=== PATIENT | female | born 1955 | race African-American/Black ===

== ENCOUNTER 2016-03-14 18:23 | Emergency (ER) | payer OTHER ==
[~2016-03-14] VITALS: Ht 165.1 cm; Wt 85.6 kg
[~2016-03-14 18:23] MED LIST: ALPRAZOLAM2 MG PO; Ascorbic Acid,Ester- PO; Aspirin E.C. PO; BENZTROPINE MESY1 MG PO; CALCIUM-MAGNES1 EA10 PO; CHOLESTYRAMINE PO; CLONAZEPAM0.5 MG PO; COGENTIN1 MG PO; COGENTIN2 MG PO; CRANBERRY TABL1 EACH PO; CYCLOBENZAPRINE10 M1 PO; Coumadin,Jantoven PO; DIVALPROEX SOD500 MG PO; DOXEPIN HCL50 MG PO; Duragesic TD; ENDOCET 5-3251 EACH PO; ESTRACE42.5 GM VG; FOLIC ACID1 MG PO; Folvite PO; IRON325 M1 PO; Klonopin PO; LIDODERM 5% P1 PATCH TD; LISINOPRIL30 MG PO; LOPRESSOR50 MG PO; LOVAZA1 GM; LOVAZA1 GM PO; LUNESTA3 MG PO; LYRICA150 MG; LYRICA150 MG PO; LYRICA50 MG PO; Lopressor PO; MELOXICAM7.5 MG PO; METOPROLOL TART50 MG; MORPHINE SULFAT15 M1 PO; MS Contin,Oramorph S PO; MULTIVITAMIN1 EAC2 PO; Miralax, Glycolax PO; NAPROSYN500 MG PO; OMEGA-3 ACID ETH1 GM PO; OXCARBAZEPINE150 MG PO; PERCOCET 10/1 TABLET PO; PERCOCET 5/31 TABLET PO; PERCOCET 7.5-51 EACH PO; PRAZOSIN HCL1 MG PO; PREMARIN0.3 MG PO; PRINZIDE 20-251 EACH PO; Percocet 5/325,Endoc PO; QUETIAPINE FUM100 MG PO; RESTORIL22.5 MG PO; SEROQUEL100 MG PO; SEROquel PO; SINEQUAN75 MG PO; Senokot S,Pericolace PO; TRILEPTAL300 MG PO; TYLENOL REGULA325 MG PO; Theragran PO; VITAMIN B-6100 MG PO; VITAMIN B12 100MCG PO; VITAMIN E400 UNIT PO; Vicodin,Lortab 5/500 PO; Vitamin B-12 PO; WELCHOL625 MG PO; XANAX XR1 MG PO; XANAX1 MG PO; XANAX2 MG PO; ZANAFLEX2 MG PO; ZETIA10 MG PO; ZYPREXA10 MG PO; ZYPREXA20 MG PO; Zestril,Prinivil PO; risperDAL PO
[2016-03-14 19:06] LABS: HEMATOCRIT 39.3 % (36.0-46.0); MCH 31.2 PG (29.0-34.0); MCHC 34.1 G/DL (30.0-36.0); MCV 91.4 FL (83-99); MEAN PLAT.VOLUME 10.3 uM^3 (9.5-12.4); PLATELET COUNT 230 K/uL (156-360); RBC DIS.WIDTH-CV 12.8 % (11.8-14.6); RBC DIS.WIDTH-SD 41.7 % (39-53); WHITE BLOOD COUNT 7.8 K/uL (4.1-10.2)
[2016-03-14 19:24] LABS: CHLORIDE 107 mEq/L (99-109); POTASSIUM 3.5 mEq/L (3.7-5.4); SODIUM 143 mEq/L (136-147)
[2016-03-14 19:25] LABS: GLUCOSE 103 mg/dL (70-99)
[2016-03-14 19:27] LABS: ANION GAP 11 MEQ/L (2-14)
[2016-03-14 19:28] LABS: TROP-I INTERPRETATION NEGATIVE; TROPONIN-I < 0.01 ng/mL (0.0-0.30)
[2016-03-14 19:29] LABS: GFR ESTIMATE (CALCULATED) > 59 mL/min/
[2016-03-14 19:30] LABS: UREA NITROGEN (BUN) 16 mg/dL (9-23)
[2016-03-14 23:04] LABS: TROP-I INTERPRETATION NEGATIVE; TROPONIN-I < 0.01 ng/mL (0.0-0.30)
[2016-03-14 23:29] VITALS: BP 163/93
== END 2016-03-14 23:44 | disposition home or self-care (01) ==
LOC: EME 18:23
PROVIDERS: Emergency Medicine
DX: R07.9 Chest pain, unspecified (principal); M79.602 Pain in left arm; I10 Essential (primary) hypertension; G89.29 Other chronic pain; Z79.891 Long term (current) use of opiate analgesic
CPT/HCPCS: 71020; 80048; 84484; 85027; 93005; 99281; 99284

== ENCOUNTER 2016-12-10 21:43 | Emergency (ER) | payer OTHER ==
[~2016-12-10] VITALS: Ht 165.1 cm; Wt 86.2 kg
[2016-12-11 01:16] VITALS: BP 171/94
== END 2016-12-11 01:17 | disposition home or self-care (01) ==
LOC: EME 21:43
DX: T40.1X1A Poisoning by heroin, accidental (unintentional), initial encounter (principal); F31.9 Bipolar disorder, unspecified; K21.9 Gastro-esophageal reflux disease without esophagitis; R56.9 Unspecified convulsions; Z86.73 Personal history of transient ischemic attack (TIA), and cerebral infarction without residual deficits; Z85.038 Personal history of other malignant neoplasm of large intestine; Z72.0 Tobacco use
CPT/HCPCS: 99281; 99284; J2310; J2405

== ENCOUNTER 2017-06-02 16:28 | Emergency (ER) | payer OTHER ==
[~2017-06-02] VITALS: Ht 165.1 cm; Wt 80.1 kg
[2017-06-02] MEDS ORDERED: NARCAN4 MG NS (16:55)
[2017-06-02 17:07] LABS: HEMATOCRIT 41.4 % (36.0-46.0); HEMOGLOBIN 13.9 G/DL (11.9-15.5); MCH 31.7 PG (29.0-34.0); MCHC 33.6 G/DL (30.0-36.0); MCV 94.3 FL (83-99); PLATELET COUNT 219 K/uL (156-360); RBC DIS.WIDTH-CV 13.1 % (11.8-14.6); RBC DIS.WIDTH-SD 45.2 % (39-53); RED BLOOD COUNT 4.39 M/uL (3.80-5.20); WHITE BLOOD COUNT 17.3 K/uL (4.1-10.2)
[2017-06-02 17:15] LABS: CHLORIDE 108 mEq/L (99-109); POTASSIUM 3.7 mEq/L (3.7-5.4); SODIUM 144 mEq/L (136-147)
[2017-06-02 17:17] LABS: GLUCOSE 123 mg/dL (70-99)
[2017-06-02 17:20] LABS: SERUM ETHYL ALCOHOL < 10 mg/dL
[2017-06-02 17:21] LABS: CREATININE 1.2 mg/dL (0.6-1.3); GFR ESTIMATE (CALCULATED) 59 mL/min/
[2017-06-02 17:22] LABS: UREA NITROGEN (BUN) 12 mg/dL (9-23)
[2017-06-02 21:30] VITALS: BP 105/64
== END 2017-06-02 21:31 | disposition home or self-care (01) ==
LOC: EME 16:28
PROVIDERS: Emergency Medicine Emergency Medical Services
DX: T40.2X1A Poisoning by other opioids, accidental (unintentional), initial encounter (principal); T42.4X1A Poisoning by benzodiazepines, accidental (unintentional), initial encounter; R41.82 Altered mental status, unspecified; J98.8 Other specified respiratory disorders; I10 Essential (primary) hypertension; K21.9 Gastro-esophageal reflux disease without esophagitis; F31.9 Bipolar disorder, unspecified; F20.9 Schizophrenia, unspecified; F41.9 Anxiety disorder, unspecified; F32.9 Major depressive disorder, single episode, unspecified; Z86.73 Personal history of transient ischemic attack (TIA), and cerebral infarction without residual deficits; Z85.038 Personal history of other malignant neoplasm of large intestine; Z72.0 Tobacco use; Z90.710 Acquired absence of both cervix and uterus
CPT/HCPCS: 80048; 85027; 99281; 99285; G0480; J2310; J7040